=== PATIENT | female | born 1985 | race Caucasian/White ===

== ENCOUNTER 2021-08-05 17:56 | Emergency (ER) | payer OTHER, SELFPAY ==
[2021-08-05 18:12] VITALS: BP 123/81; PULSE 94; RESP 18; TEMP 37.1; O2SAT 100
--- NOTE | 2021-08-05 18:26 | ED.DENTAL ---
HPI - Dental/Oral General Chief complaint: Dental/Oral Stated complaint: toothache/swollen gums Time Seen by Provider: 08/05/21 18:26 Source: patient, RN notes reviewed and old records reviewed Mode of arrival: ambulatory Limitations: no limitations History of Present Illness HPI Narrative: 35-year-old female who presents to [facility] with complaints of dental pain to the right lower side for the past 4 days with swelling to the right side of her face. Patient has a broken off tooth to the right lower molar area with gum noted to be red and swollen with no drainage noted. Patient does use tobacco daily. Patient has been taking Ibuprofen for her discomfort which has helped. Patient reports that she has an appointment to see Dentist on Wednesday. MD Complaint: tooth pain Location: Tooth # (29) Onset (ago): day(s) (4) Duration: constant Severity: moderate Related Data Home Medications Medication Instructions Recorded Confirmed norethindrone-e.estradiol-iron 1 tablet PO DAILY 08/05/21 08/05/21 [[facility]] Allergies Allergy/AdvReac Type Severity Reaction Status Date / Time No Known Allergies Allergy Verified 08/05/21 18:21 Review of Systems Review of Systems: CONSTITUTIONAL: Denies fever, chills, or sweats. EYES: Denies visual changes, redness, or discharge. ENT: Denies rhinorrhea, congestion, sore throat, or otalgia.positive for dental pain to the right lower gum #29 tooth broken off, face swollen CARDIOVASCULAR: Denies chest pain, palpitations, or edema. RESPIRATORY: Denies cough or dyspnea. GASTROINTESTINAL: Denies abdominal pain, nausea, vomiting, or diarrhea. GENITOURINARY: Denies dysuria or hematuria. SKIN: Denies rash or itching. MUSCULOSKELETAL: Denies back pain, joint pain, or myalgia. NEUROLOGIC: Denies headache, numbness, or weakness. PSYCHIATRIC: Positive for past history of anxiety or depression. All systems reviewed & are unremarkable except as noted in HPI and below PMFSH Past Medical History Medical History (Updated 08/05/21 @ 18:46 by Laine Lamar NP) Chronic back pain Depression GERD (gastroesophageal reflux disease) Surgical History Surgical History (Updated 08/05/21 @ 18:44 by Laine Lamar NP) H/O: History of cholecystectomy Family History Family History (Updated 08/05/21 @ 18:45 by Laine Lamar NP) Mother Hypertension Neuropathy Grandparent Hypertension Social History Social History (Updated 08/05/21 @ 18:45 by Laine Lamar NP) Smoking packs per day: 1 Smoking cigarettes per day: 20.0 Years smoked: 20 Smoking pack-years: 20.00 Smoking status: Current every day smoker Tobacco type: cigarettes Alcohol intake: current Alcohol use details: social Substance use: current Substance use type: marijuana Living arrangements: with family Gender identity (if verbalized by the patient): Female Comments At time of signature, agree with nursing past medical, surgical, social and family history. There is no relevant family history pertinent to the presenting complaint Exam Narrative: GENERAL: Well-appearing, well-nourished, and in no acute distress. HEAD: Normocephalic, atraumatic. EYES: PERRLA and EOMI. ENT: Nares clear, no rhinorrhea or epistaxis. Mucous membranes moist. TMs normal with good light reflex throat pink with no lesions or exudates or tonsillar swelling, broken tooth #29 with swelling of the gum and redness no drainage noted, swelling also noted to right side of face no [place] angina or any trismus noted NECK: Supple no lymphadenopathy CHEST: Clear to auscultation. No respiratory distress. SaO2 100% on room air HEART: Regular rate and rhythm. No murmur heard. Normal peripheral pulses. ABDOMEN: Soft, nontender, nondistended, normal active bowel sounds. EXTREMITIES: Normal range of motion. No edema. SKIN: Warm, dry, no rash. NEURO: No focal deficits. Alert and oriented x3. Course Course Level of Care:
== END 2021-08-05 18:42 | disposition home or self-care (01) ==
PROVIDERS: Emergency Provider Registered Nurse; PCP Emergency Medicine
DX: K04.7 Periapical abscess without sinus (principal); S02.5XXA Fracture of tooth (traumatic), initial encounter for closed fracture; X58.XXXA Exposure to other specified factors, initial encounter; K21.9 Gastro-esophageal reflux disease without esophagitis; F17.210 Nicotine dependence, cigarettes, uncomplicated
CPT/HCPCS: 99213; G0463

== ENCOUNTER 2024-08-31 15:11 | Emergency (ER) | payer OTHER, SELFPAY ==
--- NOTE | 2024-08-31 15:13 | ED.URI ---
HPI - URI/Sore Throat General Chief Complaint: Upper Respiratory Infection Stated Complaint: Fever, cough, chest congestion, sore throat Time Seen by Provider: 08/31/24 15:13 Source: patient Mode of arrival: ambulatory Limitations: no limitations History of Present Illness HPI Narrative: Mary is a 38-year-old female patient presenting to the clinic today with complaints of fever, productive cough, body aches, chills, chest congestion, and sore throat x3 days. She reports her daughter was sick with similar symptoms 2 weeks ago. MD elicited complaint: fever, cough, sore throat and nasal congestion Related Data Home Medications ?Medication ?Instructions ?Recorded ?Confirmed ?Last Taken ?Type norethindrone-eth. estradiol-iron 1 tablet PO DAILY 08/05/21 08/05/21 Unknown History 1-20 (5)/1-30(7)/1mg-35mcg(9) tablet (Tri-Legest Fe) Allergies Allergy/AdvReac Type Severity Reaction Status Date / Time No Known Allergies Allergy Verified 08/31/24 15:21 Review of Systems Review of Systems: Pertinent positives per HPI. Patient denies any rash, headache, visual changes, dizziness, shortness of breath, chest pain, palpitations, nausea, vomiting, diarrhea, constipation, abdominal pain, or any urinary issues. [facility] Past Medical History Medical History Depression Chronic back pain GERD (gastroesophageal reflux disease) Surgical History Surgical History H/O: History of cholecystectomy Family History Family History Mother Hypertension Neuropathy Grandparent Hypertension Social History Social History Smoking packs per day: 1 Smoking cigarettes per day: 20.0 Years smoked: 20 Smoking pack-years: 20.00 Smoking status: Current every day smoker Tobacco type: cigarettes Alcohol intake: current Alcohol use details: social Substance use: current Substance use type: marijuana Living arrangements: with family Gender identity (if verbalized by the patient): Female Comments At the time of my signature, I reviewed and agree with the nursing past medical, surgical, social, and family history. There is no relevant family history pertinent to the patient complaint. Exam Narrative: General: Well-developed, well nourished, in no apparent distress Head: Normocephalic, atraumatic Eyes: Pupils equally round and reactive to light bilaterally, EOM intact, sclera and conjunctive clear, no discharge, lids normal Ears: TMs intact and clear, ear canals clear, no drainage, grossly hearing normal. Nose: Nares patent, no discharge, no inflammation, no sinus tenderness. Mouth: Oral pharynx without lesions or masses, good dentition, MMM. Neck: Supple, trachea midline, no enlargement of anterior or posterior cervical nodes, no thyroid masses or goiter palpable. Cardio: Regular rate and rhythm, s1 and s2 normal, no murmur appreciated. Resp: Clear to auscultation bilaterally, no rhonchi, rales, wheezing or rubs Course Course Emergency Course: Portions of this record may have been created with voice recognition software. Level of Care: Express Care Visit Vital Signs Vital signs: Vital Signs Temperature 36.8 C 08/31/24 15:23 Pulse Rate 89 08/31/24 15:23 Respiratory Rate 18 08/31/24 15:23 Blood Pressure 136/98 H 08/31/24 15:23 Pulse Oximetry 100 08/31/24 15:23 Oxygen Delivery Room Air 08/31/24 15:23 Temperature 36.8 C 08/31/24 15:23 Pulse Rate 89 08/31/24 15:23 Respiratory Rate 18 08/31/24 15:23 Blood Pressure 136/98 H 08/31/24 15:23 Pulse Oximetry 100 08/31/24 15:23 Oxygen Delivery Room Air 08/31/24 15:23 Vital signs reviewed MDM - URI/Sore Throat MDM Narrative Medical decision making narrative: At the time of visit patient is resting comfortably on the exam table. Patient appears to be nontoxic. Labs:Influenza testing is positive in the clinic today. Covid testing is negative Plan:Influenza A testing was positive. She is out of the window for Tamiflu. Supportive measures were discussed with the patient and they voiced understanding discharge instructions and agrees to treatment plan. Return precautions reviewed Differential Diagnosis Differential diagnosis: Likely upper respiratory infection, otitis media, sinusitis, viral infection, bronchitis, influenza, pharyngitis and other (COVID) Discharge Plan Discharge Clinical Impression: Influenza A Patient Disposition: Home, Self-Care Condition: Stable Instructions: Antibiotic Form, Influenza (ED) Additional Instructions: Influenza a testing is positive in the clinic today. COVID testing is negative. Lung sounds are clear and there is no sign of bacterial infection. May take DayQuil/NyQuil for cold/flu symptoms Increase fluids and stay well hydrated Tylenol/motrin for pain/fever Flonase and OTC antihistamines as directed Vicks vapor rub to open sinuses Sinus rinses for congestion Cepacol spray, cough drops, throat lozenges, warm tea with honey/lemon, gargle salt water to soothe throat BRAT diet for diarrhea Clear liquids x 24 hours then advance as tolerated for nausea/vomiting Go to the ED if you develop a worsening in your condition- high fever not controlled by Tylenol or Motrin, dehydration, weakness, lethargy, shortness of breath, or chest pain. Follow up with your PCP in 3-5 days if symptoms persist. Patient Language: Macanese Prescriptions: No Action Tri-Legest Fe -20(5)/1-30(7) /1mg-35mcg (9) tablet 1 tablet PO DAILY Follow-up/Referrals: Ok Joseph MD [Primary Care Provider] - Time of Disposition: 15:27 Quality NIHSS Nursing Documentation ED NIHSS nursing documentation: reviewed/agree
[2024-08-31 15:23] VITALS: BP 136/98; PULSE 89; RESP 18; TEMP 36.8; O2SAT 100
[2024-08-31 15:41] LABS: EDCOVIDSCREEN Negative (Negative); EDINFLUASCREEN Positive (Negative); EDINFLUBSCREEN Negative (Negative)
== END 2024-08-31 15:30 | disposition home or self-care (01) ==
PROVIDERS: Emergency Provider Nurse Practitioner Family; PCP Emergency Medicine
DX: J10.1 Influenza due to other identified influenza virus with other respiratory manifestations (principal); F17.210 Nicotine dependence, cigarettes, uncomplicated; Z20.822 Contact with and (suspected) exposure to COVID-19
CPT/HCPCS: 87426; 87804; 99212; G0463